=== PATIENT | female | born 1965 | race Caucasian/White ===

== ENCOUNTER → 2016-12-24 | Outpatient (CLI) | payer BC | LOC: US 14:00 | DX: E04.1 Nontoxic single thyroid nodule (principal) | CPT/HCPCS: 76536 ==

== ENCOUNTER 2020-12-03 12:45 | Emergency (ER) | payer BC, OTHER ==
[2020-12-03] MEDS ORDERED: CEPHALEXIN500 M1 PO (16:36)
[2020-12-03] MEDS ORDERED: IBUPROFEN800 MG PO (16:36)
== END 2020-12-03 16:36 | disposition home or self-care (01) ==
LOC: ER1 12:45
DX: S41.112A Laceration without foreign body of left upper arm, initial encounter (principal); I10 Essential (primary) hypertension; Z79.899 Other long term (current) drug therapy; W45.0XXA Nail entering through skin, initial encounter; Y92.009 Unspecified place in unspecified non-institutional (private) residence as the place of occurrence of the external cause; Z23 Encounter for immunization
CPT/HCPCS: 12032; 73060; 90471; 90715; 99283